=== PATIENT | female | born 1990 | race Caucasian/White ===

== ENCOUNTER 2024-01-19 04:28 | Inpatient (IN) | payer BC, SELFPAY ==
[2024-01-19] VITALS (107 sets, daily range): BP systolic 97–149; BP diastolic 54–86; PULSE 69–117; RESP 16–20; TEMP 36.6–37.6; O2SAT 88–100; BMI 29.0
[2024-01-19 04:17] LABS: Amnisure Rom* POSITIVE
[2024-01-19] MEDS: CALCIUM CARBONATE 500 MG CHEW PO ×3 (05:40→14:00)
[2024-01-19] MEDS: LACTATED RINGERS 1000 ML 1,000 ML 999 ML IV ×2 (07:44→20:00)
[2024-01-19 07:51] LABS: Basophils Percent Auto 0.1 % (0.0-3.0); Hematocrit 37.9 % (33.0-51.0); Hemoglobin* 12.8 gm/dL (12.0-16.0); Immature Granulocytes Pct Auto 0.5 %; Lymphocytes Percent Auto 6.7 % (20-44); Mean Corpuscular HGB Conc 34 gm/dL (32-36); Mean Corpuscular Hemoglobin 28 pg (26-34); Mean Corpuscular Volume 84 fL (80-100); Monocytes Percent Auto 5.1 % (0.0-11.0); Neutrophils Percent Auto 87.6 % (42.0-72.0); Platelet Count* 190 K/uL (140-440); RDW Coefficient of Variation % 12.1 % (11.5-15.5); Red Blood Count 4.53 m/uL (4.00-5.20); White Blood Count* 19.26 K/uL (4.50-11.00)
[2024-01-19 07:54] LABS: Slide Review Reflex No
[2024-01-19] MEDS: ROPIVACAINE 0.2 % PF 10 ML INJ 20 MG EPIDURAL (09:05)
[2024-01-19] MEDS: ROPIVACAINE 0.2% 100 ml 100 ML 12 MG EPIDURAL ×2 (09:05→16:30)
[2024-01-19] MEDS: LIDOCAINE 2% (PF) 5 ML VIAL EPIDURAL (09:05)
--- NOTE | 2024-01-19 09:09 | P.ANBPRC_ITS ---
PFSH PFSH Social History What is your current living situation?: I presently have a place to live Problems where you live: no known problems In the past 12 months, utilities in danger of being shut off: no In past 12 months, lack of transportation kept you from medical appts, meetings, work, or getting things needed for daily living: no In the past 12 mos, have been you worried that your food would run out before you had money to buy more?: never true In the past 12 mos, the food you bought just didn't last and you didn't have money to buy more?: never true Smoking Status: Never smoker How often does anyone, including family, friends and others, physically hurt you : never How often does anyone, including family, friends and others, insult or talk down to you: never How often does anyone, including family, friends and others, threaten you with harm: never How often does anyone, including family, friends and others, scream or curse at you: never Meds Home Medications and Allergies Home Medications ?Medication ?Instructions ?Recorded ?Confirmed ?Type vit no.95-ferrous 1 tab PO DAILY 01/18/24 01/19/24 History fumarate 28 mg-folic acid 800 mcg tablet () sertraline 50 mg tablet 25 mg PO DAILY 01/18/24 01/19/24 History valacyclovir 500 mg tablet 500 mg PO DAILY 01/18/24 01/19/24 History Allergies Allergy/AdvReac Type Severity Reaction Status Date / Time No Known Drug Allergies Allergy Verified 01/19/24 03:35 Results Labs Labs: Laboratory Results - last 24 hr 01/19/24 01/19/24 03:51 07:35 WBC 19.26 H RBC 4.53 Hgb 12.8 Hct 37.9 MCV 84 MCH 28 MCHC 34 RDW Coeff of Zack 12.1 Plt Count 190 Neut % (Auto) 87.6 H Lymph % (Auto) 6.7 L Hodgeman % (Auto) 5.1 Eos % (Auto) 0.0 Baso % (Auto) 0.1 Neut # (Auto) 16.90 H Lymph # (Auto) 1.30 Hodgeman # (Auto) 1.00 H Eos # (Auto) 0.00 Baso # (Auto) 0.00 Abs Immat Gran (auto) 0.10 Imm/Tot Granulo (auto) 0.5 Membrane Rupture POSITIVE Blood Type B Positive Antibody Screen NEGATIVE Vital Signs Vital Signs: Last Vital Signs Temp 99 F 01/19/24 06:10 Pulse 93 01/19/24 09:06 Resp 16 01/19/24 06:10 BP 128/60 01/19/24 09:06 Pulse Ox 97 01/19/24 09:06 Weight: 83.915 kg Height: 170.18 cm Anesthesia Procedures Epidural Insertion Patient Location: OB Start Time: 08:10 Stop Time: 09: Start Date: 01/19/24 Stop Date: 01/19/24 Reason for Block: procedure for pain Patient Position: sitting Performed By: Omid Mcgregor Preanesthetic Checklist: IV checked, risks and benefits discussed, surgical consent, monitors and equipment checked, pre-op evaluation, timeout performed and anesthesia consent Prep: chlorhexidine gluconate Monitoring: blood pressure monitoring, continuous pulse oximetry and heart rate Approach: midline Vertebral Space: lumbar (1-5) Epidural Technique: MAU air Needle Type: Tuohy needle Injection Technique: continuous catheter Needle gauge: 17 Needle Length (cm): 10 cm Needle Insertion Depth (cm): 7 Catheter Gauge: 19 Catheter Type: multi-orifice Catheter at skin depth (cm): 13 Test Dose Result: negative and lidocaine 1.5% with epinephrine 1 to 200,000
--- NOTE | 2024-01-19 11:52 | PM.OBHPLI ---
OB - H&P: HPI Labor/Induction History of Present Illness Time Seen by Provider: 11:30 Date Seen: 01/19/24 Chief Complaint: The patient is a 33 year old 1 para 0 at 38 weeks gestation by 9wk US due to uncertain LMP, who presented with increasing contractions and leaking fluid. Chief complaint: Maternity : 1 Narrative: Tesha Méndez is a 33 year old 1 para 0 at 38 weeks gestation by 9wk US due to uncertain LMP, who presented with increasing contractions and leaking fluid. She reports contractions started 1230pm yesterday 01/18/24 and she was in triage last night and monitored with cervix approximately 0.5cm and high after monitoring for over an hour per RN. She was given morphine and hydroxyzine and went home. Says contractions persisted and increased all night and early this morning around 2:30am lost her mucous plug and then had trickling fluid down leg. Presented to Center around 0330 and had +amniosure. She was admitted to center. No recent illness. No headaches or vision changes. significant for RUQ pain during . Had nml bp's, nml preeclamptic labs and US showed gallstones in gallbladder. No current pain. History of Present care: limited care Ultrasounds: normal mid trimester US Labs Blood type: B (+) positive Rubella: immune RPR/VDLR: nonreactive GBS status: negative HBsAG: negative Meds Home Medications and Allergies Home Medications ?Medication ?Instructions ?Recorded ?Confirmed ?Type vit no.95-ferrous 1 tab PO DAILY 01/18/24 01/19/24 History fumarate 28 mg-folic acid 800 mcg tablet () sertraline 50 mg tablet 25 mg PO DAILY 01/18/24 01/19/24 History valacyclovir 500 mg tablet 500 mg PO DAILY 01/18/24 01/19/24 History Allergies Allergy/AdvReac Type Severity Reaction Status Date / Time No Known Drug Allergies Allergy Verified 01/19/24 03:35 OB - H&P: Exam Physical Exam: Vital signs: Temp Pulse Resp BP Pulse Ox 98.5 F 85 16 118/64 96 01/19/24 10:15 01/19/24 11:47 01/19/24 11:17 01/19/24 11:47 01/19/24 11:11 Constitutional: Constitutional: no acute distress Routine HEENT Exam: Head: Present normal inspection Eye: Present normal appearance ENT: Present mucous membranes moist Routine Respiratory Exam: Respiratory: Present CTA bilaterally; Absent crackles, rales or wheezes Routine Cardiovascular Exam: Cardiovascular: RRR Routine Exam: External: Present normal external exam Perineum Description: Normal Detailed Labor and Delivery Exam: Patient Gravid: Yes Dilation (cm): 5 Effacement (%): 90 Cervix position: anterior Consistency: soft Contraction frequency (min): 5 Fetus (Single): Station: 0 Amniotic Membrane Status: SROM Amniotic Membrane Fluid Description: Clear Heart Rate Baseline: 130 Monitor Accelerations: Present Monitor Decelerations: None Benefits Processor Variability: Moderate (6-25) Routine Extremities Exam: Extremities: Absent pedal edema OB - Results Labs Labs: Short CBC 01/19/24 Range/Units 07:35 WBC 19.26 H (4.50-11.00) K/uL Hgb 12.8 (12.0-16.0) gm/dL Hct 37.9 (33.0-51.0) % Plt Count 190 (140-440) K/uL OB - Problem Based A/P Additional Plan (1) SROM (spontaneous rupture of membranes): Status: Acute (2) Term : Status: Acute Plan G1 at 38wks with SROM around 0230 this morning, +amniosure. -requested and received epidural -GBS negative -Exam with bulging bag fluid. discussed AROM as has been 5cm for last 1.5hours and ctxs spacing out. Pt in agreement and AROM with clear fluid. -Discussed labor courses and typical labor curve and when and why we would rec intervening. Discussed if ctxs do not increase or further cervical change with AROM, will need start pitocin. reasons reviewed. will monitor after AROM for now but pt reported understanding and was in agreement with starting pitocin if needed. -Reviewed plan with pt and spouse -All ?'s answered
--- NOTE | 2024-01-19 14:11 | PM.OBPNL ---
Subjective Time Seen by Provider: 13:45 Date Seen: 01/19/24 Narrative: pt reports increased pressure and pain with contractions. Getting lots heartburn. some nausea. no vomiting. No pain between contractions Objective Vital Signs: Last Vital Signs Temp 98.3 F 01/19/24 12:15 Pulse 83 01/19/24 14:02 Resp 16 01/19/24 11:17 BP 106/59 L 01/19/24 14:02 Pulse Ox 97 01/19/24 14:09 Pelvic Exam Dilation (cm): 6 Effacement (%): 90 Station: +1 Contractions Monitor mode: External Contraction Frequency: q2-4min Contraction pattern: Regular Assessment Station: +1 Amniotic Membrane Status: SROM Heart Rate Baseline: 130 Customer Support Specialist Variability: Moderate (6-25) Monitor Accelerations: Present Monitor Decelerations: Prolonged (1 two minute decel down to 100 right after cervical check and position change. Resolved on own. Now with early decelerations. ) Plan Plan: -expectant management -discussed current labor course and plan with pt and spouse. All ?'s answered
[2024-01-19] MEDS: PHENYLEPHRINE 100 MCG/ML SYRINGE IVP (18:03)
[2024-01-19] MEDS: TERBUTALINE 1 MG/ML INJ 0.25 MG SUBCUT (18:20)
[2024-01-19] MEDS: AZITHROMYCIN 500 MG in 0.9 % SODIUM CHLORIDE 250 ml 250 ML 255 MG IVPB (18:37)
--- NOTE | 2024-01-19 18:45 | PM.OBCN1 ---
OB - CN: HPI Date of Consult Date Seen: 01/19/24 Consult date: 01/19/24 Requesting Physician: Martha Goldstein DO Primary Care Provider: Not a Local Provider Consult Narrative Narrative: The patient is a 33 year old G 1 P 0 at 38 weeks, 0 days gestation that was admitted to the Center on 01/19/24 for spontaneous rupture of membranes, which occurred at 2:30 a.m. this morning. I was consulted by her starts for evaluation of nonreassuring status in the setting of prolonged 2nd stage. At the point of our discussion, patient had been pushing for 3 hours. She has an epidural. While some caput was visible, the station was too high to attempt operative vaginal delivery. Fetus has exhibited recurrent late decelerations for a time, and some prolonged decelerations as well. Two prelim was given. At this point, baseline has increased from around 125 to 140, currently with moderate variability and accelerations present. Her is uncomplicated. She has no history of abdominal surgeries. She is GBS negative. History History 1 Elective abortions Para 0 Spontaneous abortions Hx # Term Pregnancies Ectopic pregnancies Hx # Pregnancies Multiple births Number of Living Children 0 Labs Blood type: B (+) positive Rubella: immune RPR/VDLR: nonreactive GBS status: negative HBsAG: negative OB Labs: Lab Assessment Start: 01/19/24 03:56 Freq: ONCE Status: Complete Protocol: PC.OBGBS Activity Type Activity Date Activity User E-sign Co-sign Detail Recorded Client Recorded Date Recorded By Document 01/19/24 04:40 MJA [id number] 01/19/24 04:40 MJA 01/19/24 04:40 Lab Assessment GBS Status negative GBS Additional Criteria None No Treatment Needed OK Are Labs Available Yes Maternal Blood Type B Maternal RH Factor Positive Evaluate Maternal Rubella Immune Status Immune Hepatitis B Surface Antigen Negative Maternal HIV Status Negative Maternal Syphillis (RPR) Status Negative PFSH PFSH Medical History (Updated 01/19/24 @ 12:36 by Martha Goldstein DO) Depression ?F32.A - Depression, unspecified (ICD-10) PMDD (premenstrual dysphoric disorder) ?F32.81 - Premenstrual dysphoric disorder (ICD-10) Surgical History (Updated 01/19/24 @ 12:33 by Martha Goldstein, DO) [place] teeth extracted ?K08.409 - Partial loss of teeth, unspecified cause, unspecified class (ICD-10) Social History What is your current living situation?: I presently have a place to live Problems where you live: no known problems In the past 12 months, utilities in danger of being shut off: no In past 12 months, lack of transportation kept you from medical appts, meetings, work, or getting things needed for daily living: no In the past 12 mos, have been you worried that your food would run out before you had money to buy more?: never true In the past 12 mos, the food you bought just didn't last and you didn't have money to buy more?: never true Smoking Status: Never smoker How often does anyone, including family, friends and others, physically hurt you: never How often does anyone, including family, friends and others, insult or talk down to you: never How often does anyone, including family, friends and others, threaten you with harm: never How often does anyone, including family, friends and others, scream or curse at you: never Meds Home Medications and Allergies Home Medications ?Medication ?Instructions ?Recorded ?Confirmed ?Type vit no.95-ferrous 1 tab PO DAILY 01/18/24 01/19/24 History fumarate 28 mg-folic acid 800 mcg tablet () sertraline 50 mg tablet 25 mg PO DAILY 01/18/24 01/19/24 History valacyclovir 500 mg tablet 500 mg PO DAILY 01/18/24 01/19/24 History Allergies Allergy/AdvReac Type Severity Reaction Status Date / Time No Known Drug Allergies Allergy Verified 01/19/24 03:35 OB - H&P: Exam Physical Exam: Vital signs: Temp Pulse Resp BP Pulse Ox 98.3 F 76 16 121/61 91 01/19/24 12:15 01/19/24 18:19 01/19/24 11:17 01/19/24 18:19 01/19/24 15:09 Narrative: Physical exam: Vitals as noted above. General: No acute distress, trembling Psych: Alert and oriented x 3, full affect HEENT: Normocephalic, atraumatic Abdomen: Soft, nontender, gravid, cephalic OB - Results Labs Labs: Short CBC 06/16/24 Range/Units 07:35 WBC 19.26 H (4.50-11.00) K/uL Hgb 12.8 (12.0-16.0) gm/dL Hct 37.9 (33.0-51.0) % Plt Count 190 (140-440) K/uL OB - CN: A/P Assessment and Plan (1) SROM (spontaneous rupture of membranes): Status: Acute Assessment and Plan: Arrest of descent, now with nonreassuring status. Plan is for primary delivery. We discussed risks of procedure, including bleeding/hemorrhage, infection, scarring, thromboembolism, likely recovery and restrictions, and impact on future pregnancies. Consent form was reviewed with and signed by patient. Cefazolin and azithromycin for preoperative prophylaxis. (2) Term : Status: Acute
--- NOTE | 2024-01-19 18:46 | P.OBPN_ITS ---
Subjective Time Seen by Provider: 18:47 Date Seen: 01/19/24 Narrative: Pt quickly progressed from 6cm to 10cm and started pushing after that point. She has been pushing with good effort in various positions for 3 hours. She was thought to be making slow progress with pushing but developed recurrent late decels with pushing. We tried various positions to help FHT and facilitate pushing success. continued to have late decelerations and had significant caput and station not low enough for vacuum assisted delivery. Pt also feeling exhausted from 3hours pushing. Discussed with pt risks vs benefits of continuing to pursue vaginal delivery vs . Pt and spouse reported understanding and agreed with pursining c/s. I discussed with OB surgeon space and missile operations spacelift Dr Navarrete who agreed with c/s. Terbutaline was given per Dr Navarrete. See her consult note for details. Objective Vital Signs: Last Vital Signs Temp 98.3 F 01/19/24 12:15 Pulse 76 01/19/24 18:19 Resp 16 01/19/24 11:17 BP 121/61 01/19/24 18:19 Pulse Ox 91 01/19/24 15:09 Pelvic Exam Dilation (cm): 10 Effacement (%): 100 Station: +3 Contractions Monitor mode: External Contraction pattern: Regular Assessment Amniotic Membrane Status: SROM Heart Rate Baseline: 150 Ocean Fishing Guide Variability: Moderate (6-25) Monitor Decelerations: Late Plan Plan: proceed with c/s.
[2024-01-19] MEDS: CEFAZOLIN 2 GM INJ IVP (19:32)
[2024-01-19] MEDS: KETOROLAC 30 MG/ML inj IVP (20:21)
--- NOTE | 2024-01-19 20:44 | P.ANES_ITS ---
Anesthesia Charges Start Date/Time Anesthesia Start Date: 01/19/24 Anesthesia Start Time: 19:22 Stop Date/Time Anesthesia Stop Date: 01/19/24 Anesthesia Stop Time: 20:46 Summary Emergency: LEARNING SOLUTIONS SPECIALIST
--- NOTE | 2024-01-19 20:45 | W.PM.NB ---
Nerve Block Nerve Block Time Seen by Provider: 20:34 Date Seen: 01/19/24 Type of block requested by surgeon for post-operative analgesia: TAP Side: bilateral Time out performed: Yes Verification of patient name: Yes Verification of date of : Yes Site marking: not applicable Name of person performing procedure: Luana Continuous monitoring Was continuous monitoring of O2 sat, B/P, gambling monitor, recorded every 15 minutes?: Yes Procedure Checklist: sterile prep and needles Ultrasound guided. Images saved: Yes Medications given in 5ml increments after negative aspiration: Marcaine %: 0.25 mL: 30 Needle gauge: 20 and Exparel mL: 10 Needle gauge: 20 Patient tolerated procedure well: Yes Block Charges Block Charge (with Pro Fee): TAP Bilateral Use of Ultrasound Machine for Block: Yes- US Guidance/pain block
--- NOTE | 2024-01-19 21:07 | PM.OBPRCCS ---
Procedure Date of procedure: 01/19/24 Procedure Done: Global Will [facility] bill your pro fee for this procedure?: Yes Procedure Description: PREOPERATIVE DIAGNOSIS: 38 weeks, 0 days gestation Arrest of descent Nonreassuring status POSTOPERATIVE DIAGNOSIS: 38 weeks, 0 days gestation Arrest of descent Nonreassuring status PROCEDURE: Primary low-transverse section SURGEON: Nia Navarrete MD ANESTHESIA: Epidural IV FLUIDS: 1000 mL crystalloid QBL: 453 mL FINDINGS: 1. Male , cephalic OP, asynclitic presentation, Apgars of 8 and 9, weight 7 lb, 1 oz 2. Normal appearance to uterus, bilateral tubes and ovaries. COMPLICATIONS: None PROCEDURE IN DETAIL: Patient was taken to the operating room with IV running. She received cefazolin and azithromycin in preoperative prophylaxis. Epidural anesthesia had previously been administered. Mondragon catheter was inserted. She was prepped and draped in the usual sterile fashion. Anesthesia was tested and found to be adequate. A low-transverse skin incision was made with a scalpel and carried through to the underlying layer of fascia with the scalpel. The subcutaneous fat was dissected off the underlying fascia bluntly. The fascia was nicked in the midline with a scalpel, and this incision was extended laterally with scissors. The rectus muscles were in the midline. Peritoneum was identified and entered bluntly. Bovie was used to widen this opening laterally. Hank O retractor was inserted and tightened down, providing excellent visualization of the lower uterine segment. The bladder reflection was advanced along the lower uterine segment. A bladder flap was created with a combination of sharp and blunt dissection. Low-transverse uterine incision was made with a scalpel. Incision was widened bluntly. The infant's head was grasped through the hysterotomy and delivered with the help of fundal pressure. The remainder of the body delivered without incident. Cord was clamped and cut after 30 seconds. was handed off to attending nurses. The placenta was delivered with gentle traction on the cord. The uterus was exteriorized and cleaned of all clots and debris with the dry lap pad. The hysterotomy was reapproximated with 0 Vicryl in a running, locked fashion. Second layer of the same suture was used in imbricating fashion to obtain hemostasis. The adnexa were examined and noted to be normal in appearance. The cul-de-sac and gutters were cleansed with dampened laparotomy sponge, removing any further clots and debris. The uterus was returned to the abdomen. The Hank O retractor was removed. The hysterotomy was reexamined and found to be hemostatic. The peritoneum was reapproximated with 2 0 Vicryl in a running fashion. The rectus muscles were examined and found to be hemostatic. The fascia was reapproximated with 0 Vicryl in a running fashion. Subcutaneous fat was irrigated and Bovie used on oozing vessels. The subcutaneous fat was reapproximated with 2 0 plain gut suture in an interrupted fashion. The skin was closed with a subcuticular stitch of 3-0 Monocryl. Surgical glue was applied above this. Patient tolerated procedure well was taken to recovery area in stable condition. Pathology: specimen obtained, sent to pathology Surgery Debrief Performed: Yes Surgery Debrief Comment: Confirmed desire to send placenta to pathology
[2024-01-19 22:48] LABS: Hematocrit 33.7 % (33.0-51.0); Hemoglobin* 11.3 gm/dL (12.0-16.0); Mean Corpuscular HGB Conc 34 gm/dL (32-36); Mean Corpuscular Hemoglobin 29 pg (26-34); Mean Corpuscular Volume 85 fL (80-100); Platelet Count* 173 K/uL (140-440); Red Blood Count 3.97 m/uL (4.00-5.20); White Blood Count* 23.07 K/uL (4.50-11.00)
[2024-01-19 22:51] LABS: Slide Review Reflex No
[2024-01-19 22:52] LABS: Aspartate Amino Transferase* 44 U/L (12-35); Creatinine* 0.7 mg/dL (0.5-1.5); Est. Creatinine Clearance* 110.12; Estimated Glomerular Filt Rate 116 ml/min
[2024-01-19 22:53] LABS: Alanine Aminotransferase* 21 U/L (4-35); Blood Urea Nitrogen* 8 mg/dL (5-24)
[2024-01-20] VITALS (10 sets, daily range): BP systolic 98–106; BP diastolic 59–70; PULSE 60–84; RESP 15–16; TEMP 36.6–36.9; O2SAT 96–97
[2024-01-20] MEDS: ACETAMINOPHEN 500 MG TABLET 1000 MG PO ×3 (00:44→20:03)
[2024-01-20 01:32] LABS: Total Protein Urine 16 mg/dL
[2024-01-20 01:33] LABS: Creatinine Urine 9.4 mg/dL
[2024-01-20] MEDS: KETOROLAC 30 MG/ML inj IVP ×4 (02:30→21:17)
[2024-01-20] MEDS: diphenhydrAMINE 50 MG/ML inj 12.5 MG IVP (02:40)
[2024-01-20 06:58] LABS: Hemoglobin* 10.5 gm/dL (12.0-16.0)
[2024-01-20 07:08] LABS: Creatinine* 0.7 mg/dL (0.5-1.5); Est. Creatinine Clearance* 110.12; Estimated Glomerular Filt Rate 116 ml/min
[2024-01-20 07:09] LABS: Alanine Aminotransferase* 20 U/L (4-35); Aspartate Amino Transferase* 39 U/L (12-35); Blood Urea Nitrogen* 7 mg/dL (5-24)
--- NOTE | 2024-01-20 08:16 | PM.OBPNVD1 ---
OB - PN:Subj Subjective Date Seen: 01/20/24 Narrative: Tesha is a 33 y.o. G 1 P 1 who was admitted to [facility] for spontaneous onset of labor. She is an [facility] patient. ?She had a section that was uncomplicated. The patient feels well. ?The pain is well controlled with current medications. ?She has no new complaints. ?She is breast feeding and reports things are going well. the patient has done well.? Vitals have been stable.? She has remained afebrile.? Has a good appetite, is tolerating a general diet. ?She is voiding without difficulty.? She is passing gas and has not had a bowel movement.? She is ambulating and denies any dizziness.? Has small amount of rubra lochia. Problems: Anemia due to acute blood loss OB - PN: Obj Exam Physical Exam: Vital signs: Temp Pulse Resp BP Pulse Ox O2 Del Method 98 F 64 16 98/59 L 96 Room Air 01/20/24 07:49 01/20/24 07:49 01/20/24 07:49 01/20/24 07:49 01/20/24 07:49 01/20/24 07:49 Narrative: GENERAL APPEARANCE:? normal affect, alert, no distress MOOD:? appropriate CHEST:? clear to auscultation HEART:? regular rate and rhythm ABDOMEN:? soft, non-tender the uterine fundus is At Umbilicus, Midline and is appropriate for the stage of recovery. EXTREMITIES:? normal and no edema INCISION: Healing well, no surrounding erythema, abnormal induration or discharge Urinary Catheter Management: Urethral: Cath placed during this visit: yes Urethral indwelling: Yes Reason for continuing: surgical procedure Insertion date: 01/19/24 OB - PN: Obj Data Labs Labs: Laboratory Results - last 24 hr 01/19/24 01/19/24 01/20/24 07:35 22:30 01:00 WBC 23.07 H RBC 3.97 L Hgb 11.3 L Hct 33.7 MCV 85 MCH 29 MCHC 34 Plt Count 173 BUN 8 Creatinine 0.7 Estimated Creat Clear 110.12 Estimated GFR 116 AST 44 H ALT 21 Urine Creatinine 9.4 Protein/Creatinin Ratio 1.70 H Urine Total Protein 16 Blood Type B Positive Antibody Screen NEGATIVE 01/20/24 01/20/24 06:10 06:35 WBC RBC Hgb 10.5 L Hct MCV MCH MCHC Plt Count BUN 7 Creatinine 0.7 Estimated Creat Clear 110.12 Estimated GFR 116 AST 39 H ALT 20 Urine Creatinine Protein/Creatinin Ratio Urine Total Protein Blood Type Antibody Screen OB - PN: A/P Delivery Assessment and Plan (1) care and examination immediately after delivery: Status: Acute (2) Status post delivery: Status: Acute (3) Lactating mother: Status: Acute (4) Elevated blood pressure reading without diagnosis of hypertension: Status: Acute Plan day: 1 Plan: routine care Comments: plan: Catheter in place. Plan to removed this am. Encouraged ambulation. , may see if needed Hgb 10.5. Iron supplement ordered orally every other day Elevated BP without diagnosis of HTN, monitor BP Anticipate discharge tomorrow or the following day
[2024-01-20] MEDS: DOCUSATE SODIUM 100 MG CAPSULE PO (09:38)
--- NOTE | 2024-01-20 10:13 | PM.ANPOST ---
Post Anesthesia Note Post Anesthesia Note Patient seen: Inpatient Respiratory Status: adequate Cardiovascular Status: adequate Mental Status: baseline Pain: adequate Temp: baseline Anesthetic awareness: N/A Complications: none Follow care: none
[2024-01-21 01:01] VITALS: BP 119/82; PULSE 97; RESP 16; TEMP 37.1; O2SAT 97
[2024-01-21] MEDS: ACETAMINOPHEN 500 MG TABLET 1000 MG PO ×3 (03:05→15:17)
[2024-01-21] MEDS: IBUPROFEN 600 MG TABLET PO ×3 (03:06→15:17)
[2024-01-21 08:20] VITALS: BP 110/75; PULSE 79; RESP 16; TEMP 36.6; O2SAT 95
--- NOTE | 2024-01-21 08:41 | P.DS_ITS ---
DS: Providers Provider Date Seen: 01/21/24 Date of admission: 01/19/24 04:28 Primary care physician: Not a Local Provider Admitting Clinician: Martha Goldstein DO Attending Physician on discharge: Sheryl Hopkins CNM Date of Discharge: 01/21/24 DS: Diagnosis Discharge Diagnosis (1) Preeclampsia: Status: Acute (2) Lactating mother: Status: Acute (3) Status post delivery: Status: Acute (4) care and examination immediately after delivery: Status: Acute Exam Narrative: Exam Narrative: VSS. ?Afebrile GENERAL APPEARANCE: ?normal affect, alert, no distress MOOD: ?appropriate HEENT: normocephalic, neck supple, full ROM CHEST: ?Symmetrical chest wall movement. ?Normal respiratory effort. ?Clear to auscultation HEART: ?regular rate and rhythm ABDOMEN: ?soft, non-tender. Uterine fundus is firm, at Umbilicus, Midline and is appropriate for the stage of recovery. ?Bowel sounds present. EXTREMITIES: ?normal and no edema SKIN: warm, dry. ? ?Incision clean/dry/well approximated. ?No signs of infection noted. Const: Vital Signs, click to edit/add: Vital Signs - 24 hr 01/20/24 11:44 01/20/24 12:09 01/20/24 16:04 Temperature 97.9 F Pulse Rate [Pulse Oximeter] 77 Respiratory Rate 15 15 16 Blood Pressure [Ri ght Arm] 106/70 Pulse Oximetry 96 Oxygen Delivery Me thod Room Air 01/20/24 16:04 01/20/24 16:09 01/20/24 19:57 Temperature 97.8 F 98.4 F Pulse Rate [Pulse Oximeter] 73 84 Respiratory Rate 16 16 16 Blood Pressure [Ri ght Arm] 103/69 103/68 Pulse Oximetry 97 97 Oxygen Delivery Me thod Room Air Room Air 01/21/24 01:01 Temperature 98.7 F Pulse Rate [Pulse Oximeter] 97 Respiratory Rate 16 Blood Pressure [Ri ght Arm] 119/82 Pulse Oximetry 97 Oxygen Delivery Me thod Room Air Documenting provider has reviewed patient's vital signs: yes OB - DS: Summary Hospital Course Hospital Course: Tesha is a 33 y.o. who was admitted to [facility] for SROM. ?She had an uncomplicated .?The patient feels well. ?The pain is well controlled with current medications. ?She has no new complaints. ?She is breast feeding and reports things are going well.? the patient has done well.? Vitals have been stable.? She has remained afebrile.? Has a good appetite, is tolerating a general diet. ?She is voiding without difficulty.? She is passing gas and has not had a bowel movement.? She is ambulating and denies any dizziness.? Has Small amount of rubra lochia. ?She is planning condoms for prevention. Peripartum Data Infant delivery method: Primary C/S; Labored Laceration description: None Procedures: Procedures Operation Date: 01/19/24 20:00 Actual Procedure Side Surgeon p Low Transverse Section Not Applicable Sima Tom Pardo MD complications: none [place] Gender: Male Discharge Plan: Home Status at Discharge Functional status at discharge: independent ambulation Overall status at discharge: patient is progressing back to baseline Time Spent with Patient Time attestation: Total time spent providing and/or coordinating discharge services: Time spent: Less than 30 minutes Discharge Plan Discharge Disposition: Home, Self-Care Date of Admission: 01/19/24 04:28 Attending Provider on Discharge: Sheryl Hopkins Primary Care Provider: Provider,Not a Local Condition: Stable Anticipated Discharge Date/Time: 01/21/24 12:00 Discharge Medications: New acetaminophen 500 mg Tablet 1,000 mg PO Q6H PRN (Reason: Pain) Qty: 0 0RF docusate sodium 100 mg Capsule 100 mg PO DAILY Qty: 90 2RF ferrous sulfate 325 mg (65 mg iron) Tablet 325 mg PO Q OTHER DAY Qty: 30 0RF ibuprofen 600 mg Tablet 600 mg PO Q6H PRN (Reason: Pain) Qty: 60 0RF oxycodone 5 mg Tablet 5 - 10 mg PO Q4H PRN (Reason: Pain) Qty: 10 0RF Continued sertraline 50 mg tablet 25 mg PO DAILY PNV [id number]-ferrous fumarate-FA [] 28 mg iron- 800 mcg tablet 1 tab PO DAILY Discontinued valacyclovir 500 mg tablet 500 mg PO DAILY Discharge Orders: Discharge Order (Routine); Ordered 01/21/24 Ordered By: Sheryl Hopkins Patient Education: OB Over the Counter Medication Information, OB /Breast Feeding Additional Instructions: Discharge instructions were reviewed with the patient including signs and symptoms of infection and home going medications Lifting Restrictions: 20 pounds for 6 weeks No not submerge incision under water X 2 weeks? Nothing vaginally for 6 weeks: no tampons or intercourse Do not drive while taking narcotic pain medication(s) Off Work or School for 8 weeks [facility] for [facility]?in 3 days Call with BP greater than or equal to 150/100 2-week visit: incision check, discuss infant feeding concerns, review control options and screen for anxiety/depression. 6-week visit for an annual exam. consultation services are available to all mothers and babies for the first year after delivery.? To make an appointment, please call [phone]. Activity Level: Activity as Tolerated Discharge Diet: Regular Follow Up Appointments: Provider,Not a Local [Primary Care Provider] - [facility] [Provider Group] Forms: [employer] Info Instructions
[2024-01-21] MEDS: DOCUSATE SODIUM 100 MG CAPSULE PO (09:07)
[2024-01-21 09:12] VITALS: BP 100/68; PULSE 76
[2024-01-21 11:35] VITALS: BP 105/70; PULSE 79; RESP 22; TEMP 36.9; O2SAT 96
[2024-01-21 15:22] VITALS: BP 112/78; PULSE 98; RESP 16; TEMP 36.4; O2SAT 96
[2024-01-21 18:34] LABS: Rapid Plasma Reagin (RPR) Non Reactive (Non Reactive)
== END 2024-01-21 16:47 | disposition home or self-care (01) | DRG 540 ==
LOC: OB OUT 04:29 → OB 19:06
PROVIDERS: Obstetrics & Gynecology; Admitting Provider Family Medicine; Visit Provider Obstetrics & Gynecology
PROC: (CPT 59514; principal; 2024-01-19 19:45)
DX: O76 Abnormality in fetal heart rate and rhythm complicating labor and delivery (principal); O99.344 Other mental disorders complicating childbirth; F32.A Depression, unspecified; Z3A.38 38 weeks gestation of pregnancy; Z37.0 Single live birth; O32.4XX0 Maternal care for high head at term, not applicable or unspecified; O90.81 Anemia of the puerperium; D62 Acute posthemorrhagic anemia; R12 Heartburn; G89.18 Other acute postprocedural pain; O14.05 Mild to moderate pre-eclampsia, complicating the puerperium
CPT/HCPCS: 01967; 01968; 36415; 59025; 64488; 76942; 82565; 82570; 84112; 84156; 84450; 84460; 84520; 85018; 85025; 85027; 86592; 86850; 86900; 86901; 88307; 99140; G0463; A9270; C9290; J0456; J0665; J0690; J1100; J1200; J1885; J2270; J2274; J2371; J2405; J2590; J2795; J3105; J7050; J7120